=== PATIENT | female | born 1980 | race Caucasian/White ===

== ENCOUNTER 2018-03-21 07:30 | Inpatient (IN) | payer OTHER ==
[2018-03-21] MEDS ORDERED: LACTATED RINGER'S 1,000 ML IV (08:51)
[2018-03-21] MEDS ORDERED: OXYCODONE/ACETAMINOPHEN (5/325) TAB PO (09:00)
[2018-03-21] MEDS ORDERED: IBUPROFEN 600 MG TAB PO (09:00)
[2018-03-21] MEDS ORDERED: OXYCODONE/ASPIRIN (4.88/325) TAB PO ×3 (09:00→23:30)
[2018-03-21] MEDS ORDERED: METHYLERGONOVINE 0.2 MG INJ IM ×2 (09:00→23:30)
[2018-03-21] MEDS ORDERED: MISOPROSTOL 200 MCG TAB PR ×2 (09:00→23:30)
[2018-03-21] MEDS ORDERED: LIDOCAINE 1% (MPF) 30 ML INJ INJ (09:00)
[2018-03-21] MEDS ORDERED: BUTORPHANOL 1 MG INJ IV (09:00)
[2018-03-21] MEDS ORDERED: OXYTOCIN 30 UNITS/LR 500 ML IV ×2 (09:00→23:30)
[2018-03-21] MEDS ORDERED: CARBOPROST 250 MCG INJ IM ×2 (09:00→23:30)
[2018-03-21 09:20] LABS: ADD MAN DIFF? NO
[2018-03-21 09:25] LABS: WHITE BLOOD COUNT 8.5 10^3/ul (4.8-10.8)
[2018-03-21 09:25] LABS: BASOPHILS % 0.2 % (0.0-2.0); EOSINOPHILS # 0.1 10^3/ul (0.0-0.5); EOSINOPHILS % 0.7 % (0.0-7.0); HEMATOCRIT 33.5 % (37.0-47.0); HEMOGLOBIN 11.5 g/dl (12.0-16.0); LYMPHOCYTES # 1.9 10^3/ul (0.8-2.9); LYMPHOCYTES % 22.9 % (15.0-51.0); MEAN CORPUSCULAR HEMOGLOBIN 30.2 pg (29.0-33.0); MEAN CORPUSCULAR HGB CONC 34.3 g/dl (32.0-37.0); MEAN CORPUSCULAR VOLUME 87.9 fl (82.0-101.0); MEAN PLATELET VOLUME 12.8 fl (7.4-10.4); MONOCYTE # 0.7 10^3/ul (0.3-0.9); MONOCYTES % 7.7 % (0.0-11.0); NEUTROPHIL # 5.8 10^3/ul (1.6-7.5); NEUTROPHILS % 67.9 % (39.0-77.0); PLATELET COUNT 176 10^3/UL (140-415); RED BLOOD COUNT 3.81 10^6/ul (4.20-5.40); RED CELL DISTRIBUTION WIDTH 12.4 % (11.5-14.5)
[2018-03-21 09:45] LABS: INR 0.94; PARTIAL THROMBOPLASTIN TIME 31.1 Sec (23.0-35.0); PROTIME 12.7 Sec (11.9-14.9)
[2018-03-21] MEDS ORDERED: MISOPROSTOL 50 MCG CAPSULE (10:29)
[2018-03-21] MEDS: LACTATED RINGER'S 1,000 ML IV ×3 (10:41→18:42)
[2018-03-21] MEDS: MISOPROSTOL 50 MCG CAPSULE PO ×2 (10:54→15:05)
[2018-03-21 14:16] LABS: HEPATITIS B SURFACE ANTIGEN NEGATIVE (NEGATIVE)
[2018-03-21] MEDS ORDERED: MINERAL OIL LIGHT 10 ML VIAL (22:40)
[2018-03-21 22:53] LABS: RAPID PLASMA REAGIN NONREACTIVE (NR)
[2018-03-21] MEDS: MINERAL OIL LIGHT 10 ML VIAL TOP (22:53)
[2018-03-21] MEDS: OXYTOCIN 30 UNITS/LR 500 ML IV ×2 (22:55→23:15)
[2018-03-21] MEDS: BUTORPHANOL 2 MG INJ IV (23:03)
[2018-03-21] MEDS ORDERED: NACL 0.9% 3 ML SYG IV (23:30)
[2018-03-21] MEDS ORDERED: SENNA/DOCUSATE NA (8.6MG/50MG) TAB PO (23:30)
[2018-03-22] MEDS: IBUPROFEN 600 MG TAB PO ×4 (01:07→17:44)
[2018-03-22] MEDS: WITCH HAZEL/GLYCERIN PAD PR (01:08)
[2018-03-22] MEDS: BENZOCAINE 20% 56 ML SPRAY TOP (01:08)
[2018-03-22] MEDS: LANOLIN HPA 1 PKT TOP (01:08)
[2018-03-22] MEDS: OXYTOCIN 30 UNITS/LR 500 ML IV (04:09)
[2018-03-22 07:52] LABS: ADD MAN DIFF? NO
[2018-03-22 07:56] LABS: ABNORMAL IP MESSAGE 1; BASOPHILS % 0.1 % (0.0-2.0); EOSINOPHILS % 0.1 % (0.0-7.0); HEMATOCRIT 32.4 % (37.0-47.0); HEMOGLOBIN 11.2 g/dl (12.0-16.0); LYMPHOCYTES # 1.6 10^3/ul (0.8-2.9); LYMPHOCYTES % 11.6 % (15.0-51.0); MEAN CORPUSCULAR HEMOGLOBIN 30.1 pg (29.0-33.0); MEAN CORPUSCULAR HGB CONC 34.6 g/dl (32.0-37.0); MEAN CORPUSCULAR VOLUME 87.1 fl (82.0-101.0); MEAN PLATELET VOLUME 13.2 fl (7.4-10.4); MONOCYTE # 0.8 10^3/ul (0.3-0.9); NEUTROPHIL # 11.2 10^3/ul (1.6-7.5); NEUTROPHILS % 81.7 % (39.0-77.0); PLATELET COUNT 159 10^3/UL (140-415); RED BLOOD COUNT 3.72 10^6/ul (4.20-5.40); RED CELL DISTRIBUTION WIDTH 12.6 % (11.5-14.5)
[2018-03-22 07:56] LABS: WHITE BLOOD COUNT 13.7 10^3/ul (4.8-10.8)
[2018-03-22 07:59] LABS: POSITIVE DIFF @See below
[2018-03-22] MEDS: SENNA/DOCUSATE NA (8.6MG/50MG) TAB PO ×2 (08:44→21:46)
[2018-03-23] MEDS: IBUPROFEN 600 MG TAB PO ×4 (00:10→18:03)
[2018-03-23] MEDS: SENNA/DOCUSATE NA (8.6MG/50MG) TAB PO (09:44)
== END 2018-03-23 20:00 | disposition home or self-care (01) | DRG 806 ==
LOC: PP1 03-22 00:32 → L-D 07:30
PROVIDERS: Obstetrics & Gynecology
PROC: 10E0XZZ Delivery of Products of Conception, External Approach (ICD-10-PCS; principal; 2018-03-21 08:00)
PROC: 0HQ9XZZ Repair Perineum Skin, External Approach (ICD-10-PCS; 2018-03-21 08:00)
PROC: 3E033VJ Introduction of Other Hormone into Peripheral Vein, Percutaneous Approach (ICD-10-PCS; 2018-03-21 08:00)
DX: O48.0 Post-term pregnancy (principal); O71.4 Obstetric high vaginal laceration alone; Z37.0 Single live birth; Z3A.40 40 weeks gestation of pregnancy; O69.81X0 Labor and delivery complicated by cord around neck, without compression, not applicable or unspecified
CPT/HCPCS: 76815; 85025; 85610; 85730; 86592; 86762; 86850; 86900; 86901; 87340; 90686